=== PATIENT | male | born 1970 | race Caucasian/White ===

== ENCOUNTER 2016-12-20 07:58 | Day surgery (SDC) | payer BC ==
[2016-12-20] MEDS ORDERED: TETRACAINE 0.5% OPHTH 1 DOSE AFFEYE ONE ×2 (08:40→11:35)
[2016-12-20] MEDS ORDERED: VIGAMOX 0.5% OPHTH 1 DOSE AFFEYE ONE ×5 (08:41→11:57)
[2016-12-20] MEDS ORDERED: NS 500 ML IV 500 ML IV ONE (08:44)
[2016-12-20] MEDS ORDERED: PROLENSA OPHTH 1 DOSE AFFEYE ONE (08:52)
[2016-12-20] MEDS ORDERED: ALPHAGAN-P OPHTH 1 DOSE AFFEYE ONE (08:53)
[2016-12-20] MEDS ORDERED: CYCLOGYL 1% OPHTH 1 DOSE OP ONE ×4 (08:54→08:57)
[2016-12-20] MEDS ORDERED: AK-DILATE 2.5% OPHTH 1 DOSE OP ONE ×4 (08:54→08:57)
[2016-12-20] MEDS ORDERED: MYDRIACIL OPHTH 1 DOSE AFFEYE ONE ×4 (08:54→08:57)
[2016-12-20] MEDS ORDERED: NS 1/2 1000 ML IV 500 ML IV ONE (09:00)
[2016-12-20] MEDS ORDERED: BETADINE OPHTH SOLN 5% EACHEYE ONE (11:35)
[2016-12-20] MEDS ORDERED: DUOVISC IO ONE (11:46)
[2016-12-20] MEDS ORDERED: ADRENALINE CHL INJ IJ ONE (11:46)
[2016-12-20] MEDS ORDERED: BSS OPHTH (PLAIN) 500 ML with VANCOMYCIN HCL 500 MG VIAL 25 MG, ADRENALINE CHL INJ 1 MG IR ONE ×3 (11:46)
[2016-12-20] MEDS ORDERED: XYLOCAINE-MPF 1% IJ ONE (11:46)
[2016-12-20 12:57] VITALS: BP 160/96
[2016-12-20] MEDS ORDERED: DIPRIVAN VIAL ONE (15:51)
== END 2016-12-20 12:25 | disposition home or self-care (01) ==
LOC: SURG1 07:58
PROVIDERS: ATTEND Ophthalmology
PROC: 08RJ3JZ Replacement of Right Lens with Synthetic Substitute, Percutaneous Approach (ICD-10-PCS; principal; 2016-12-20 11:30)
PROC: 08DJ3ZZ Extraction of Right Lens, Percutaneous Approach (ICD-10-PCS; principal; 2016-12-20 11:30)
DX: H25.11 Age-related nuclear cataract, right eye (principal); H25.011 Cortical age-related cataract, right eye; H25.041 Posterior subcapsular polar age-related cataract, right eye; H52.221 Regular astigmatism, right eye
CPT/HCPCS: A4217; J0170; J3370; J3490

== ENCOUNTER 2017-01-17 10:10 | Day surgery (SDC) | payer BC ==
[~2017-01-17 10:10] MED LIST: DIPRIVAN VIAL ONE
[2017-01-17] MEDS ORDERED: NS 500 ML IV 500 ML IV ONE (10:25)
[2017-01-17] MEDS ORDERED: TETRACAINE 0.5% OPHTH 1 DOSE AFFEYE ONE ×2 (10:45→13:51)
[2017-01-17] MEDS ORDERED: VIGAMOX 0.5% OPHTH 1 DOSE AFFEYE ONE ×5 (10:46→14:13)
[2017-01-17] MEDS ORDERED: PROLENSA OPHTH 1 DOSE AFFEYE ONE (10:57)
[2017-01-17] MEDS ORDERED: ALPHAGAN-P OPHTH 1 DOSE AFFEYE ONE (10:58)
[2017-01-17] MEDS ORDERED: CYCLOGYL 1% OPHTH 1 DOSE OP ONE ×2 (11:00→11:03)
[2017-01-17] MEDS ORDERED: MYDRIACIL OPHTH 1 DOSE AFFEYE ONE ×2 (11:00→11:03)
[2017-01-17] MEDS ORDERED: AK-DILATE 2.5% OPHTH 1 DOSE OP ONE ×2 (11:00→11:03)
[2017-01-17] MEDS ORDERED: BETADINE OPHTH SOLN 5% EACHEYE ONE (13:51)
[2017-01-17] MEDS ORDERED: DUOVISC IO ONE ×2 (13:57→14:04)
[2017-01-17] MEDS ORDERED: XYLOCAINE-MPF 1% IJ ONE ×2 (13:57→14:04)
[2017-01-17] MEDS ORDERED: ADRENALINE CHL INJ IJ ONE ×2 (13:57→14:04)
[2017-01-17] MEDS ORDERED: BSS OPHTH (PLAIN) 500 ML with VANCOMYCIN HCL 500 MG VIAL 25 MG, ADRENALINE CHL INJ 1 MG IR ONE ×6 (13:59)
[2017-01-17 14:28] VITALS: BP 140/90
== END 2017-01-17 14:30 | disposition home or self-care (01) ==
LOC: SURG1 10:10
PROVIDERS: ATTEND Ophthalmology
PROC: 08RK3JZ Replacement of Left Lens with Synthetic Substitute, Percutaneous Approach (ICD-10-PCS; principal; 2017-01-17 19:15)
PROC: 08DK3ZZ Extraction of Left Lens, Percutaneous Approach (ICD-10-PCS; principal; 2017-01-17 19:15)
DX: H25.12 Age-related nuclear cataract, left eye (principal); H25.012 Cortical age-related cataract, left eye; H25.042 Posterior subcapsular polar age-related cataract, left eye; H52.222 Regular astigmatism, left eye
CPT/HCPCS: A4217; J0170; J3370; J3490